=== PATIENT | female | born 1960 | race Caucasian/White ===

== ENCOUNTER 2017-01-25 14:43 | Emergency (ER) | payer OTHER ==
[~2017-01-25] VITALS: Ht 167.6 cm; Wt 86.2 kg
[2017-01-25 14:47] VITALS: BP 195/118
[2017-01-25] MEDS ORDERED: BUPROPION XL300 M1 PO (14:57)
[2017-01-25] MEDS ORDERED: GABAPENTIN300 M2 PO (14:57)
[2017-01-25] MEDS ORDERED: HYDROCHLOROTHIA25 M1 PO (14:58)
[2017-01-25] MEDS ORDERED: PERMETHRIN60 GM TOP (15:06)
[2017-01-25] MEDS ORDERED: HYDROXYZINE HCL50 M1 PO (15:06)
--- NOTE | 2017-01-25 15:07 | ED SKIN/ALLERGY COMPLAINT ---
History of Present Illness General Chief Complaint: Skin Rash/ Abcess Stated Complaint: SCABIES Source: patient Exam Limitations: no limitations Vital Signs & Intake/Output Vital Signs & Intake/Output Vital Signs Date Time Temp Pulse Resp B/P Pulse O2 O2 Flow FiO2 Ox Delivery Rate 01/25 1447 96.8 89 24 195/118 96 Room Air Allergies Coded Allergies: NO KNOWN ALLERGIES (01/25/17) Reconcile Medications Bupropion HCl (Bupropion XL) 300 MG TAB.ER.24H 1 TAB PO QAM MENTAL HEALTH ( Reported) Gabapentin 300 MG CAPSULE 2 CAP PO TID NERVE PAIN/MENTAL HEALTH (Reported) Hydrochlorothiazide 25 MG TABLET 1 TAB PO DAILY BP (Reported) Hydroxyzine HCl 50 MG TABLET 1 TAB PO TID ITCHING Permethrin 5 % CREAM..G. 1 SERGIO TOP ONCE scabies massage into skin from head to soles of feet one time, leave on for 8-14 hours then remove by thorough washing Triage Note: TRIAGE: PT TO ER C/C ?SCABIES. WAS SEEN AT VASCULAR DOCTOR FOR S/S OF ITCHING "REALLY BAD" X COUPLE MONTHS, WORSE TODAY. STATES WAS REFERRED TO ER FOR EVAL. Triage Nurses Notes Reviewed? yes Onset: Abrupt Duration: months Timing: recent history Severity: moderate, severe Location: generalized No Modifying Factors: none HPI: 56-year-old female comes into emergency room for further evaluation of generalized rash that has been going on for many months. Patient reports that she was at a routine appointment with her vascular doctor when she was told that she has scabies and should have evaluated. Patient denies anybody else in the house having the rash. Rash is diffuse on trunk and extremities. Small papules. Itching. (ANDREAS MILLER) Past History Travel History Traveled to [place] past 21 day No Medical History Any Pertinent Medical History? 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 No (ANDREAS MILLER) Review of Systems Review of Systems Constitutional: Reports: no symptoms. EENTM: Reports: no symptoms. Respiratory: Reports: no symptoms. Cardiovascular: Reports: no symptoms. GI: Reports: no symptoms. Genitourinary: Reports: no symptoms. Musculoskeletal: Reports: no symptoms. Skin: Reports: see HPI. Neurological/Psychological: Reports: no symptoms. Hematologic/Endocrine: Reports: no symptoms. Immunologic/Allergic: Reports: no symptoms. All Other Systems: Reviewed and Negative (ANDREAS MILLER) Physical Exam Physical Exam General Appearance: well developed/nourished, mild distress Head: atraumatic Eyes: Bilateral: normal appearance. Ears, Nose, Throat: normal ENT inspection, hearing grossly normal Neck: normal inspection Respiratory: no respiratory distress Back: normal inspection Extremities: normal inspection, normal range of motion, no edema Neurologic/Psych: awake, alert, oriented x 3, normal mood/affect Skin: intact, rash Skin Problem Location: generalized Skin Problem Character: generalized papular rash, erythematous, Lymphatic: no anterior cervical eddi (ANDREAS MILLER) Progress Differential Diagnosis: abscess/cellulitis, allergic reaction, anaphylaxis, angioedema, contact dermatitis, drug reaction, erythema multiforme, meningitis/ sepsis, urticaria, scabies Plan of Care: 01/25/2017 3:38:23 PM Patient clinically looks well. Patient is nontoxic-appearing. In no apparent distress. Rash could be consistent with scabies. Patient treated with permethrin cream. Recommend he follow up with primary care doctor in 1 week for recheck. Otherwise in no apparent distress and looks well. (ANDREAS MILLER) Departure Departure Disposition: HOME OR SELF CARE Condition: Stable Clinical Impression Primary Impression: Scabies Referrals: JORDAN IBARRA MD (PCP/Family) Additional Instructions: Use permethrin cream and hydroxyzine as prescribed. Follow-up with your primary care doctor for recheck in one week. Return if any other concerns worsening symptoms. Please go over all results of today's visit with your primary care doctor. Contact your primary care doctor to let them know you were here in the emergency room. There may be nonspecific findings which may not be related to your visit today here in the emergency room but may require further evaluation and chronic monitoring by your primary care doctor. If you had a laceration today the chance of foreign body always remains. You should follow-up with your primary care doctor for recheck in 3-5 days for a wound check. If you had an x-ray done there is a chance that a fracture could have been missed on initial read and you should follow-up with your primary care doctor for repeat x-rays if symptoms persist. If your blood pressure was elevated here in the emergency room please have rechecked by her primary care doctor within the next 48 hours by your primary care doctor. If you were prescribed a narcotic here in the emergency room or any type of controlled substances you're not allowed to drive while taking this medication or operate any type of heavy machinery. Narcotics can make you feel lightheaded dizziness nausea and can cause constipation. You may need to chicken picker a stool softener. Thank you for choosing [facility] emergency room. Please return to the emergency room immediately if you have any other concerns worsening of symptoms. Departure Forms: Customer Survey General Discharge Information Prescriptions: Current Visit Scripts Permethrin 1 SERGIO TOP ONCE #60 GM massage into skin from head to soles of feet one time, leave on for 8-14 hours then remove by thorough washing Hydroxyzine HCl 1 TAB PO TID #30 TAB (ANDREAS MILLER) PA/RISK CONTROL ANALYST Co-Sign Statement Statement: ED Attending supervision documentation- [] I saw and evaluated the patient. I have also reviewed all the pertinent lab results and diagnostic results. I agree with the findings and the plan of care as documented in the PA's/RISK CONTROL ANALYST's documentation. [X] I have reviewed the ED Record and agree with the PA's/RISK CONTROL ANALYST's documentation. [] Additions or exceptions (if any) to the PAs/RISK CONTROL ANALYST's note and plan are summarized below: [] (BEN WILLIS,LUCAS)
== END 2017-01-25 15:21 ==
LOC: ERH 14:43
DX: B86 Scabies (principal)

== ENCOUNTER 2017-02-11 13:31 | Emergency (ER) | payer OTHER ==
[~2017-02-11 13:31] MED LIST: BUPROPION XL300 M1 PO; GABAPENTIN300 M2 PO; HYDROCHLOROTHIA25 M1 PO; HYDROXYZINE HCL50 M1 PO; PERMETHRIN60 GM TOP
--- NOTE | 2017-02-11 13:53 | ED GENERAL ADULT ---
History of Present Illness General Chief Complaint: Skin Rash/ Abcess Stated Complaint: SCABIES, TREATED NOT BETTER Source: patient Exam Limitations: no limitations Vital Signs & Intake/Output Vital Signs & Intake/Output Vital Signs Date Time Temp Pulse Resp B/P Pulse O2 O2 Flow FiO2 Ox Delivery Rate 02/11 1428 97.2 80 20 110/70 99 Room Air Allergies Coded Allergies: NO KNOWN ALLERGIES (01/25/17) Reconcile Medications Bupropion HCl (Bupropion XL) 300 MG TAB.ER.24H 1 TAB PO QAM MENTAL HEALTH ( Reported) Gabapentin 300 MG CAPSULE 2 CAP PO TID NERVE PAIN/MENTAL HEALTH (Reported) Hydrochlorothiazide 25 MG TABLET 1 TAB PO DAILY BP (Reported) Hydroxyzine HCl 50 MG TABLET 1 TAB PO TID ITCHING Hydroxyzine Pamoate (Vistaril) 25 MG CAPSULE 1 CAP PO TID PRN ITCHING Permethrin (Elimite) 5 % CREAM..G. 1 SERGIO TOP ONCE SCABIES REPEAT IN 1 WEEK Permethrin 5 % CREAM..G. 1 SERGIO TOP ONCE scabies massage into skin from head to soles of feet one time, leave on for 8-14 hours then remove by thorough washing Prednisone 20 MG TABLET 1 TAB PO DAILY RASH Triage Nurses Notes Reviewed? yes Onset: Abrupt Duration: week(s): Timing: recent history HPI: 02/11/17 56-year-old female resents to the emergency department for recurrent episodes of scabies. The patient states she was treated for scabies but has had a recurrence. She thinks it they are in her bedroom. She was treated with perethrin and Atarax. She was told to follow-up with her primary care doctor next week. the onset of the symptoms were abrupt, the duration has been for the past several days, the severity is significant; as her symptoms required her to come to the emergency department for care. she has associated rash and intense itching. we discussed her treatments, and the need to clean the beding and vacuum. I also showed her an image of bedbugs; she says those are not present in her home. Past History Travel History Traveled to [place] past 21 day No Medical History Any Pertinent Medical History? 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 No Review of Systems Review of Systems Constitutional: Denies: fever. EENTM: Denies: visual changes. Respiratory: Denies: short of breath. Cardiovascular: Denies: chest pain. GI: Reports: no symptoms. Genitourinary: Reports: no symptoms. Musculoskeletal: Reports: no symptoms. Skin: Reports: rash. Neurological/Psychological: Reports: no symptoms. Hematologic/Endocrine: Reports: no symptoms. Physical Exam Physical Exam General Appearance: alert, awake, anxious, mild distress Head: atraumatic, normal appearance Eyes: Bilateral: normal appearance, PERRL, EOMI. Ears, Nose, Throat: normal pharynx, normal ENT inspection Neck: full range of motion Respiratory: normal breath sounds, chest non-tender, no respiratory distress Cardiovascular: regular rate/rhythm Peripheral Pulses: 4+ radial (R), 4+ radial (L) Gastrointestinal: non-tender Back: normal range of motion Extremities: no edema Neurologic/Psych: no motor/sensory deficits, awake, alert, oriented x 3 Skin: intact, warm/dry, rash Comments: the patient does have multiple papules and abrasions on arms and legs and hands that are consistent with scabies infestation. she was again treated with Elimite and Atarax. instructions for vacuuming the house, cleaning linen were given. She was told to follow-up with her doctor on Tuesday Core Measures ACS in differential dx? No CVA/TIA Diagnosis: No Severe Sepsis Present: No Septic Shock Present: No Progress Differential Diagnoses I considered the following diagnoses in my evaluation of the patient: [ bed bugs , scabies, post scabies dermatitis, contact dermatitis] Plan of Care: follow-up with her doctor on Tuesday. Initial ED EKG: none Departure Departure Disposition: HOME OR SELF CARE Condition: Stable Clinical Impression Primary Impression: Rash Secondary Impressions: Scabies Referrals: JORDAN IBARRA MD (PCP/Family) Departure Forms: Customer Survey General Discharge Information Prescriptions: Current Visit Scripts Hydroxyzine Pamoate (Vistaril) 1 CAP PO TID PRN ITCHING #20 CAP Permethrin (Elimite) 1 SERGIO TOP ONCE #1 REPEAT IN 1 WEEK Prednisone 1 TAB PO DAILY #4 TAB Critical Care Note Critical Care Note Critical Care Time: non-applicable
[2017-02-11] MEDS ORDERED: PREDNISONE20 M1 PO (13:57)
[2017-02-11] MEDS ORDERED: VISTARIL25 M1 PO (13:57)
[2017-02-11] MEDS ORDERED: ELIMITE60 GM TOP (13:57)
[2017-02-11 14:28] VITALS: BP 110/70
== END 2017-02-11 14:29 ==
LOC: ERH 13:31
DX: B86 Scabies (principal); R21 Rash and other nonspecific skin eruption